=== PATIENT | female | born 1950 | race Caucasian/White ===

== ENCOUNTER → 2019-01-11 | Outpatient (CLI) | payer OTHER, MEDICARE ==
[2019-01-11 11:24] LABS: POTASSIUM 4.1 mmol/L (3.5-5.1)
[2019-01-11 11:25] LABS: ALBUMIN 3.9 g/dL (3.4-4.8); BASO # 0.1 (0.02-0.10); EOS # 0.4 (0.04-0.40); EOS % 4.3 % (1.0-5.0); HEMATOCRIT 44.2 % (37.0-47.0); HEMOGLOBIN 14.2 g/dL (12.5-16.0); LYMPH# 2.6 (1.50-4.00); MEAN CELL VOLUME 91 fl (78-100); MEAN CORPUSCULAR HEMOGLOBIN 29 pg (27-31); MEAN CORPUSCULAR HGB CONC 32 g/dL (33-37); MONO # 1.2 (0.20-0.80); NEU # 5.5 (1.40-6.50); PLATELET COUNT 300 K/mm3 (130-400); RED BLOOD COUNT 4.88 M/mm3 (4.10-5.30); RED CELL DISTRIBUTION WIDTH 13.9 % (11.5-14.5); WHITE BLOOD COUNT 9.8 K/mm3 (4.8-10.8)
[2019-01-11 11:26] LABS: CALCIUM 10.4 mg/dL (8.3-10.5)
[2019-01-11 11:29] LABS: TOTAL BILIRUBIN 0.4 mg/dL (0.2-1.2)
[2019-01-11 12:26] LABS: ERYTHROCYTE SEDIMENTATION RATE 12 mm/hr (0-30)
== END ==
LOC: LAB 10:55
PROVIDERS: Internal Medicine
DX: Z12.11 Encounter for screening for malignant neoplasm of colon (principal); E78.2 Mixed hyperlipidemia; R73.02 Impaired glucose tolerance (oral); M85.80 Other specified disorders of bone density and structure, unspecified site

== ENCOUNTER → 2019-08-02 | Outpatient (CLI) | payer OTHER, MEDICARE | LOC: MAMMO 08:15 | DX: Z13.820 Encounter for screening for osteoporosis (principal); M85.851 Other specified disorders of bone density and structure, right thigh ==

== ENCOUNTER → 2020-11-01 | Outpatient (CLI) | payer OTHER, MEDICARE ==
[2020-11-01 17:36] LABS: BASO # 0.1 (0.02-0.10); EOS # 0.3 (0.04-0.40); EOS % 3.2 % (1.0-5.0); HEMATOCRIT 42.7 % (37.0-47.0); HEMOGLOBIN 14.5 g/dL (12.5-16.0); LYMPH# 3.4 (1.50-4.00); MEAN CELL VOLUME 88 fl (78-100); MEAN CORPUSCULAR HEMOGLOBIN 30 pg (27-31); MEAN CORPUSCULAR HGB CONC 34 g/dL (33-37); MEAN PLATELET VOLUME 10.3 fl (7.4-10.4); MONO # 1.1 (0.20-0.80); NEU # 5.2 (1.40-6.50); PLATELET COUNT 289 K/mm3 (130-400); RED BLOOD COUNT 4.88 M/mm3 (4.10-5.30); RED CELL DISTRIBUTION WIDTH 13.1 % (11.5-14.5); WHITE BLOOD COUNT 10.1 K/mm3 (4.8-10.8)
[2020-11-01 17:40] LABS: POTASSIUM 3.7 mmol/L (3.5-5.1)
[2020-11-01 17:45] LABS: TOTAL BILIRUBIN 0.3 mg/dL (0.2-1.2)
[2020-11-01 17:52] LABS: PH-URINE 5.5 (5.0 - 8.0); URINE APPEARANCE CLEAR; URINE BILIRUBIN NEGATIVE (NEGATIVE); URINE BLOOD NEGATIVE (NEGATIVE); URINE COLOR LIGHT YELLOW; URINE GLUCOSE NEGATIVE (NEGATIVE); URINE KETONE NEGATIVE (NEGATIVE); URINE LEUKOCYTE ESTERASE NEGATIVE (NEGATIVE); URINE NITRATE NEGATIVE (NEGATIVE); URINE PROTEIN(semi-quant) NEGATIVE (NEGATIVE); URINE UROBILINOGEN NORMAL (NORMAL); URINE WBC 0-1 /hpf (0-3)
[2020-11-01 18:42] LABS: ERYTHROCYTE SEDIMENTATION RATE 8 mm/hr (0-30)
== END ==
LOC: LAB 16:56
PROVIDERS: Internal Medicine
DX: E78.2 Mixed hyperlipidemia (principal); M85.80 Other specified disorders of bone density and structure, unspecified site; N20.0 Calculus of kidney

== ENCOUNTER → 2020-11-05 | Outpatient (CLI) | payer OTHER, MEDICARE | LOC: LAB 14:26 | DX: Z12.11 Encounter for screening for malignant neoplasm of colon (principal) ==

== ENCOUNTER → 2023-07-09 | Outpatient (CLI) | payer MEDICARE ==
[2023-07-09 15:29] LABS: BASO # 0.08 K/mm3 (0.02-0.10); EOS # 0.25 K/mm3 (0.04-0.40); EOS % 2.6 % (1.0-5.0); HEMATOCRIT 46.5 % (37.0-47.0); HEMOGLOBIN 15.4 g/dL (12.5-16.0); MEAN CELL VOLUME 89 fl (78-100); MEAN CORPUSCULAR HEMOGLOBIN 29 pg (27-31); MEAN CORPUSCULAR HGB CONC 33 g/dL (33-37); MEAN PLATELET VOLUME 9.9 fl (7.4-10.4); MONO # 1.12 K/mm3 (0.20-0.80); NEU # 5.12 K/mm3 (1.40-6.50); PLATELET COUNT 295 K/mm3 (130-400); RED BLOOD COUNT 5.24 M/mm3 (4.10-5.30); WHITE BLOOD COUNT 9.8 K/mm3 (4.8-10.8)
[2023-07-09 15:31] LABS: ALBUMIN 4.2 g/dL (3.4-4.8)
[2023-07-09 15:32] LABS: CALCIUM 10.5 mg/dL (8.3-10.5)
[2023-07-09 15:33] LABS: TOTAL PROTEIN 7.3 g/dL (6.2-8.1)
[2023-07-09 15:38] LABS: PH-URINE 5.5 (5.0 - 8.0); URINE APPEARANCE CLEAR (CLEAR); URINE BILIRUBIN NEGATIVE (NEGATIVE); URINE BLOOD NEGATIVE (NEGATIVE); URINE COLOR YELLOW (YELLOW); URINE GLUCOSE NEGATIVE (NEGATIVE); URINE KETONE NEGATIVE (NEGATIVE); URINE LEUKOCYTE ESTERASE TRACE (NEGATIVE); URINE NITRATE NEGATIVE (NEGATIVE); URINE PROTEIN(semi-quant) NEGATIVE (NEGATIVE)
[2023-07-09 15:40] LABS: MAGNESIUM 2.15 mg/dL (1.60-2.60)
[2023-07-09 16:21] LABS: TOTAL BILIRUBIN 0.6 mg/dL (0.2-1.2)
[2023-07-10 16:50] LABS: HEPATITIS C VIRUS ANTIBODY Negative (Negative)
== END ==
LOC: LAB 14:46
PROVIDERS: Internal Medicine
DX: D64.9 Anemia, unspecified (principal)

== ENCOUNTER 2024-03-08 11:38 | Emergency (ER) | payer MEDICARE ==
[~2024-03-08] VITALS: Ht 157.5 cm; Wt 85.1 kg
[2024-03-08 12:12] LABS: HEMATOCRIT 41.4 % (37.0-47.0); HEMOGLOBIN 13.7 g/dL (12.5-16.0); MEAN CELL VOLUME 89 fl (78-100); MEAN CORPUSCULAR HEMOGLOBIN 29 pg (27-31); MEAN CORPUSCULAR HGB CONC 33 g/dL (33-37); PLATELET COUNT 344 K/mm3 (130-400); RED BLOOD COUNT 4.66 M/mm3 (4.10-5.30); RED CELL DISTRIBUTION WIDTH 12.7 % (11.5-14.5); WHITE BLOOD COUNT 14.9 K/mm3 (4.8-10.8)
[2024-03-08] MEDS ORDERED: Acetaminophen 325 MG TAB PO ONE (12:15)
[2024-03-08 12:29] LABS: SODIUM 138 mmol/L (136-145)
[2024-03-08 12:30] LABS: ALBUMIN 3.6 g/dL (3.4-4.8); BAND 1 % (0-10); CALCIUM 10.6 mg/dL (8.3-10.5); LYMPHOCYTE 12 % (20-51); MONOCYTE 12 % (3-10); NEUTROPHILS 74 % (42-75)
[2024-03-08 12:32] LABS: TOTAL PROTEIN 6.9 g/dL (6.2-8.1)
[2024-03-08 12:40] LABS: ALT/SGPT 34 U/L (0-55)
[2024-03-08 12:54] LABS: GLUCOSE 111 mg/dL (65-105)
[2024-03-08 12:55] LABS: CARBON DIOXIDE 19 mmol/L (23-31); TROPONIN-I < 0.030 ng/mL (0.00-0.033)
[2024-03-08 12:56] LABS: TOTAL BILIRUBIN 2.3 mg/dL (0.2-1.2)
[2024-03-08 13:00] LABS: AST-SGOT 30 U/L (5-34)
[2024-03-08] MEDS ORDERED: Piperacillin/Tazobactam Sodium 3.375 GM in NS 100 ML IV ONE (13:45)
[2024-03-08 14:00] LABS: URINE WBC 0 /hpf (0-3)
[2024-03-08 14:45] VITALS: BP 130/95
[2024-03-08] MEDS ORDERED: fentaNYL 100 MCG/2 ML VIAL IV ONE (14:45)
[2024-03-08 14:54] LABS: URINE APPEARANCE SLIGHTLY CLOUDY (CLEAR); URINE BILIRUBIN 1+ (NEGATIVE); URINE COLOR ORANGE (YELLOW); URINE GLUCOSE NEGATIVE (NEGATIVE); URINE PROTEIN(semi-quant) TRACE (NEGATIVE)
[2024-03-08 14:55] LABS: URINE BLOOD NEGATIVE (NEGATIVE); URINE KETONE TRACE (NEGATIVE); URINE LEUKOCYTE ESTERASE NEGATIVE (NEGATIVE); URINE MUCUS PRESENT (NOT PRESENT); URINE NITRATE NEGATIVE (NEGATIVE)
== END 2024-03-08 14:58 | disposition short-term general hospital (02) ==
LOC: ED 11:38
PROVIDERS: Physician Assistant
DX: K81.9 Cholecystitis, unspecified (principal); F17.210 Nicotine dependence, cigarettes, uncomplicated
CPT/HCPCS: J2543; J3010

== ENCOUNTER → 2024-05-09 | Outpatient (CLI) | payer MEDICARE ==
[2024-05-09 11:57] LABS: BASO # 0.06 K/mm3 (0.02-0.10); EOS # 0.21 K/mm3 (0.04-0.40); EOS % 2.1 % (1.0-5.0); HEMATOCRIT 44.4 % (37.0-47.0); HEMOGLOBIN 14.4 g/dL (12.5-16.0); LYMPH# 2.93 K/mm3 (1.50-4.00); MEAN CELL VOLUME 90 fl (78-100); MEAN CORPUSCULAR HEMOGLOBIN 29 pg (27-31); MEAN CORPUSCULAR HGB CONC 32 g/dL (33-37); MEAN PLATELET VOLUME 9.6 fl (7.4-10.4); MONO # 1.12 K/mm3 (0.20-0.80); PLATELET COUNT 286 K/mm3 (130-400); RED BLOOD COUNT 4.96 M/mm3 (4.10-5.30); RED CELL DISTRIBUTION WIDTH 12.6 % (11.5-14.5); WHITE BLOOD COUNT 10.1 K/mm3 (4.8-10.8)
[2024-05-09 12:05] LABS: ALBUMIN 4.1 g/dL (3.4-4.8); SODIUM 140 mmol/L (136-145)
[2024-05-09 12:06] LABS: CALCIUM 10.5 mg/dL (8.3-10.5); PH-URINE 6.5 (5.0 - 8.0); URINE APPEARANCE CLEAR (CLEAR); URINE BILIRUBIN NEGATIVE (NEGATIVE); URINE BLOOD NEGATIVE (NEGATIVE); URINE COLOR YELLOW (YELLOW); URINE GLUCOSE NEGATIVE (NEGATIVE); URINE KETONE NEGATIVE (NEGATIVE); URINE LEUKOCYTE ESTERASE NEGATIVE (NEGATIVE); URINE NITRATE NEGATIVE (NEGATIVE); URINE PROTEIN(semi-quant) NEGATIVE (NEGATIVE); URINE WBC 0-1 /hpf (0-3)
[2024-05-09 12:07] LABS: URINE MUCUS PRESENT (NOT PRESENT)
[2024-05-09 12:08] LABS: GLUCOSE 100 mg/dL (65-105); TOTAL PROTEIN 7.1 g/dL (6.2-8.1)
[2024-05-09 12:09] LABS: CARBON DIOXIDE 22 mmol/L (23-31)
[2024-05-09 12:10] LABS: TOTAL BILIRUBIN 0.4 mg/dL (0.2-1.2)
[2024-05-09 12:13] LABS: AST-SGOT 23 U/L (5-34)
[2024-05-09 12:14] LABS: ALT/SGPT 19 U/L (0-55)
[2024-05-09 12:15] LABS: MAGNESIUM 1.99 mg/dL (1.60-2.60)
== END ==
LOC: LAB 11:32
PROVIDERS: Internal Medicine
DX: R10.84 Generalized abdominal pain (principal)

== ENCOUNTER 2024-05-18 23:10 | Emergency (ER) | payer MEDICARE ==
[~2024-05-18] VITALS: Ht 157.5 cm; Wt 85.1 kg
[2024-05-18] MEDS ORDERED: methylPREDNISolone Sod Succ 125 MG/2 ML VIAL IM ONE (23:59)
[2024-05-18] MEDS ORDERED: Albuterol/Ipratropium 3 MG-0.5 MG/3 ML Neb Soln IH ONE (23:59)
[2024-05-19 01:00] VITALS: BP 160/80
[2024-05-19 04:00] LABS: ALBUMIN 3.9 g/dL (3.4-4.8); BASO # 0.04 K/mm3 (0.02-0.10); CALCIUM 9.6 mg/dL (8.3-10.5); EOS # 0.17 K/mm3 (0.04-0.40); EOS % 1.9 % (1.0-5.0); HEMATOCRIT 40.4 % (37.0-47.0); HEMOGLOBIN 13.1 g/dL (12.5-16.0); LYMPH# 2.16 K/mm3 (1.50-4.00); MEAN CELL VOLUME 89 fl (78-100); MEAN CORPUSCULAR HEMOGLOBIN 29 pg (27-31); MEAN CORPUSCULAR HGB CONC 32 g/dL (33-37); MEAN PLATELET VOLUME 9.8 fl (7.4-10.4); MONO # 1.09 K/mm3 (0.20-0.80); NEU # 5.51 K/mm3 (1.40-6.50); PLATELET COUNT 238 K/mm3 (130-400); RED BLOOD COUNT 4.54 M/mm3 (4.10-5.30); RED CELL DISTRIBUTION WIDTH 12.8 % (11.5-14.5); TOTAL BILIRUBIN 0.4 mg/dL (0.2-1.2); TOTAL PROTEIN 6.7 g/dL (6.2-8.1)
== END 2024-05-19 01:05 | disposition home or self-care (01) ==
LOC: ED 23:10
PROVIDERS: Family Medicine
DX: J30.9 Allergic rhinitis, unspecified (principal)
CPT/HCPCS: J2919